=== PATIENT | male | born 1975 | race Caucasian/White ===

== ENCOUNTER 2016-07-06 13:59 | Emergency (ER) | payer SELFPAY ==
[2016-07-06 14:13] VITALS: BP 136/100
--- NOTE | 2016-07-06 14:38 | ERNOTE ---
Psychological HPI - Date Date of Service: 07/06/16 - General Chief Complaint: Anxiety Source: Reports: patient Exam Limitations: Reports: no limitations - Immun/Allergies/Home Medications Allergies/Adverse Reactions: Allergies tetracycline Allergy (Mild, Verified 07/06/16 14:15) Hives Home Medications: HOME MEDICATIONS Lisinopril [Zestril] 40 mg PO DAILY 07/06/16 [Last Taken Unknown] clonazePAM [Klonopin] 0.5 mg PO BID PRN #60 tab 07/06/16 [Last Taken Unknown] - History of Present Illness Narrative: 41-year-old white male with history of anxiety disorder presents complaining of anxiety. Patient states in the past he was on Xanax been out of them for quite some time. Recently he has increased psychosocial stressors. He has multiple financial problems. Currently is from his and probably has impending divorce. He is behind in his bills and is working out of town and staying in a local motel. 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 He has excessive worry. No suicidal homicidal ideation. Decreased concentration. Energy level is okay. Some feelings of guilt. No psychoses. No illicit drugs or alcohol. He has had episodes where he feels tingling and numbness in his chest arms fingers and feet. He has had ringing in his ears at times. His had chest pain and back pain. No history of coronary disease. No familial history of coronary disease. No history of dvt. Time Seen by Provider: 07/06/16 14:19 Arrived by: Reports: private car Review of Systems - Review of Systems Constitutional: Present: no symptoms reported EYE: Present: no symptoms reported ENT: Present: no symptoms reported Respiratory: Present: no symptoms reported, shortness of breath Cardiology: Present: chest pain Gastrointestinal/Abdominal: Present: no symptoms reported Genitourinary: Present: no symptoms reported Musculoskeletal: Present: no symptoms reported, back pain Skin: Present: no symptoms reported Neurological: Present: dizziness/light-headedness, numbness, tingling Endocrine: Present: no symptoms reported Hematologic/Lymphatic: Present: no symptoms reported Psych: Present: anxiety All Other Systems: All systems neg except as marked - Patient's Past Medical History Patient History - Medical: Anxiety, Chronic Pain Patient History - Cardiac/Respiratory: Hypertension Patient History - Cancer: No Hx of Cancer Patient History - Other: None - Social History Living Situations: home Smoking Status: Never smoker Have you smoked in the past 12 months: No - Immunizations Immunizations Up to Date: Yes Hx Pneumococcal Vaccination: Yes History of Influenza Vaccine: Yes Physical Exam - Physical Exam General Appearance: Present: wd/wn, no apparent distress Eye Exam: Normal inspection: bilateral, PERRL: bilateral, EOMI: bilateral Ears, Nose, Throat: Present: normal ENT inspection Neck: Present: normal inspection, nontender Respiratory: Present: no respiratory distress, normal breath sounds, no accessory muscle use, chest nontender, lungs clear. Absent: accessory muscle use, decreased breath sounds, crackles, rales, rhonchi, stridor, wheezing Cardiovascular/Chest: Present: regular rate, rhythm, no murmur, normal peripheral pulses Gastrointestinal/Abdominal: Present: normal bowel sounds, nontender, nondistended, soft Back Exam: Present: normal inspection, normal range of motion, no vertebral tenderness Extremity Exam: Present: normal inspection, no edema Neurological Exam: Present: alert, oriented, no motor/sensory deficits, shell plater II- XII nml as tested, normal cerebellar test - patient's mood is anxious his affect is congruent ED Progress - Vital Signs Patient's Vital Signs:: I have reviewed the patient's vital signs. Vital Signs: Vital Signs 07/06/16 14:08 Temperature 36.7 C Pulse Rate 99 Respiratory 18 Rate Blood Pressure 136/100 O2 Sat by Pulse 99 Oximetry - EKG EKG: NSR, no ST T wave changes EKG read: Interp. by me - Progress/Reassessment Chief Complaint: Anxiety Departure Clinical Impression: Anxiety - Departure Disposition: Home self-care Condition: Stable Additional Instructions: Current to ED if any problems such as suicidal homicidal ideation. Try to lower stressors in her life. Recommend counseling for anxiety problems as well as marital problems. Follow-up with primary care physician for further evaluation. Prescription for Klonopin given. Risk of addiction and abuse advised. Patient verbalized understanding Prescriptions: clonazePAM [Klonopin] 0.5 mg PO BID PRN #60 tab PRN Reason: Anxiety
--- OUTSIDE RECORDS SUMMARY | 2016-07-06 14:59 | XMS REPORT | Continuity of Care Document ---
:1975 Author Organization [facility] [place] [address] Care Team Providers Name Role Phone Unavailable Primary Care Provider Unavailable Source Comments This disclosure is being made pursuant to the [employer] program and maynot contain all information available regarding this patient.[facility] Active Allergies and Adverse Reactions Not on File Current Medications Be aware that medications may not be up to date as of this document. Alwaysverify current medications with the patient. Not on file Active Problems Not on file Most Recent Encounters Date Type Specialty Providers Description 04/12/2016 Data Import Social History Tobacco Use Types Packs/Day Years Used Date Never Assessed Last Filed Vital Signs Vital Sign Reading Time Taken Blood Pressure 124/92 01/11/2014 2:20 PM CDT Pulse 84 01/11/2014 2:20 PM CDT Temperature 36.6 C (97.8 F) 01/11/2014 2:20 PM CDT Respiratory Rate 20 01/11/2014 2:20 PM CDT Height 1.778 m (5' 10") 01/11/2014 2:20 PM CDT Weight 101.61 kg (224 lb 0.2 oz) 01/11/2014 2:20 PM CDT Body Mass Index 32.14 01/11/2014 2:20 PM CDT Oxygen Saturation - - Plan of Care Health Maintenance Due Date Last Done Comments Tetanus/Pertussis (1 - Tdap) 1995 Influenza Immunization (#1) 2015 Results from Last 3 Months Not on file
== END 2016-07-06 14:54 | disposition home or self-care (01) ==
LOC: ER 13:59
DX: F41.9 Anxiety disorder, unspecified (principal); I10 Essential (primary) hypertension